=== PATIENT | male | born 1995 | race Caucasian/White ===

== ENCOUNTER 2018-07-27 00:32 | Emergency (ER) | payer BC, OTHER ==
[2018-07-27] MEDS ORDERED: NS 1,000 ML IV ONE (00:33)
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
[2018-07-27] MEDS ORDERED: ONDANSETRON 4 MG/2 ML VIAL ONE ×2 (00:36→00:44)
[2018-07-27] MEDS ORDERED: ONDANSETRON 4 MG/2 ML VIAL IVP ONE (01:05)
[2018-07-27 01:12] LABS: PLATELET COUNT 274 10^3/uL (150-400)
[2018-07-27 03:54] VITALS: BP 115/61
== END 2018-07-27 07:29 | disposition home or self-care (01) ==
PROC: 0CQ0XZZ Repair Upper Lip, External Approach (ICD-10-PCS; principal; 2018-07-27)
DX: F10.920 Alcohol use, unspecified with intoxication, uncomplicated (principal); S01.511A Laceration without foreign body of lip, initial encounter; Y04.0XXA Assault by unarmed brawl or fight, initial encounter; Y99.8 Other external cause status; E86.9 Volume depletion, unspecified; Y90.8 Blood alcohol level of 240 mg/100 ml or more
CPT/HCPCS: 96374; G0480; J2405